=== PATIENT | female | born 1960 ===

== ENCOUNTER 2017-06-01 08:59 | Day surgery (SDC) | payer OTHER ==
[2016-09-20 12:27] VITALS: BMI 28.4
[2017-06-01] MEDS ORDERED: Lactated Ringer's 1,000 ML IV ONE (09:55)
[2017-06-01 10:17] VITALS: O2SAT 99
[2017-06-01] MEDS ORDERED: Lidocaine 2% MPF (5 ml) Inj ONE (11:23)
[2017-06-01] MEDS ORDERED: Midazolam 2 MG/2 ML VIAL ONE (11:23)
[2017-06-01 12:00] VITALS: BP 102/70; PULSE 70; RESP 16; TEMP 97.2
[2017-06-01] MEDS ORDERED: Propofol 10 mg/ml Inj (20 ML) ONE (12:01)
== END 2017-06-01 12:30 | disposition home or self-care (01) ==
LOC: H.ENDO 08:59
PROVIDERS: ATTEND Internal Medicine Gastroenterology
DX: R10.9 Unspecified abdominal pain (principal); Z98.0 Intestinal bypass and anastomosis status; F32.9 Major depressive disorder, single episode, unspecified; K21.9 Gastro-esophageal reflux disease without esophagitis
CPT/HCPCS: 43239; 88305; J2250; J2704; J7120

== ENCOUNTER 2017-08-31 10:20 | Day surgery (SDC) | payer OTHER ==
[~2017-08-31 10:20] MED LIST: Atropine 0.4 mg/ml Inj (1 mL) ONE
[2017-08-31 10:39] VITALS: BMI 26.2
[2017-08-31] MEDS ORDERED: Lactated Ringer's 1,000 ML IV ONE (10:40)
[2017-08-31] MEDS ORDERED: Propofol 10 mg/ml Inj (20 ML) ONE (10:57)
[2017-08-31] MEDS ORDERED: Lidocaine 2% MPF (5 ml) Inj ONE (10:57)
[2017-08-31 11:48] VITALS: BP 100/58; PULSE 58; RESP 16; TEMP 96.3; O2SAT 10
== END 2017-08-31 12:04 | disposition home or self-care (01) ==
LOC: H.ENDO 10:20
PROVIDERS: ATTEND Internal Medicine Gastroenterology
DX: Z12.11 Encounter for screening for malignant neoplasm of colon (principal); I10 Essential (primary) hypertension; F32.9 Major depressive disorder, single episode, unspecified; K64.8 Other hemorrhoids; Q43.8 Other specified congenital malformations of intestine
CPT/HCPCS: G0121; J0461; J2704; J7120